=== PATIENT | male | born 1950 | race Caucasian/White ===

== ENCOUNTER 2017-08-21 09:55 | Day surgery (SDC) | payer MEDICARE, OTHER ==
[~2017-08-21] VITALS: Ht 188 cm; Wt 106.6 kg
[~2017-08-21 09:55] MED LIST: ASPIR-LOW81 MG PO; HYDROCHLOROTH12.5 MG PO; LISINOPRIL10 MG PO; VITAMIN B122500 MC1 PO
--- NOTE | 2017-08-21 13:46 | NUR ---
08/21/17 1346 Kierra Mart DC
--- NOTE | 2017-08-21 14:46 | NUR ---
1425: PATIENT BACK IN DAY SURGERY ROOM FROM PACU. C/O PAIN 10/24. STATES "FEELS GOOFY" FROM MEDICATIONS. RIGHT GROIN DRESSING CDI. SCDs ON. IV SITE WNL. AT BEDSIDE. DRINKING WATER. DECLINED SOMETHING TO EAT AT THIS TIME. CALL LIGHT WITHIN REACH.
[2017-08-21] MEDS ORDERED: NORCO 5-325 TA1 EACH PO (15:17)
--- NOTE | 2017-08-21 15:31 | NUR ---
PATIENT TOLERATED VANILLA PUDDING. MEDICATED FOR PAIN WITH 1 TAB OF NORCO. CALL LIGHT WITHIN REACH. AT BEDSIDE.
--- NOTE | 2017-08-21 16:12 | NUR ---
1600: PATIENT ASSISTED OOB AND TO BATHROOM. GAIT STEADY. VOID WITHOUT DIFFICULTY. GAIT STEADY BACK TO BED. IV DC'D WNL. TIP INTACT. DRESSING APPLIED. DISCHARGE INSTRUCTIONS GIVEN TO PATIENT AND . PATIENT GETTING DRESSED. 1610: PATIENT DISCHARGED TO HOME WITH VIA WHEELCHAIR.
--- NOTE | 2017-08-26 18:42 | OR ---
[facility] [address] [place], [place] [address] Signed DATE OF OPERATION: 08/21/2017 SURGEON: Jonah Pichardo MD PREOPERATIVE DIAGNOSIS: Reducible right inguinal hernia. POSTOPERATIVE DIAGNOSIS: Reducible right indirect inguinal hernia. PROCEDURE: Right Radha onlay mesh inguinal herniorrhaphy. ESTIMATED BLOOD LOSS: None. INDICATIONS: Issac is a 66-year-old gentleman, who had come to the office with his . About a week prior to the office visit, he had some coughing and felt pain and swelling in the right groin. He went to his primary care provider. There was a question whether or not he had a small right inguinal hernia. In the meantime, he did not seem to think it was bothering him. However, he was in need of a followup colonoscopy as well. Consequently, he was asked to see me with respect to the two issues. In the office, Issac does have a small inguinal hernia. We had a long discussion regarding his hernia. I gave him a [employer] brochure on hernias and we looked at it together in detail. He understands the difference between a primary suture repair and a mesh repair. He understands there is risk of surgery including, but not limited to bleeding, infection, scarring, change in contour of the skin, damage to the nerves, ischemic orchitis, recurrent hernias, and chronic pain. At first, he did not feel the hernia was bothering him to any significant degree. He wanted to wait and see if he could continue with his current hernia. He called back to the office a number of days later and said that he was having some coughing and having a lot of pain when just walking and bending over and so forth. Because of his daily symptoms then, he decided he wanted to have the hernia repaired. I met with Issac and his in our preop area. We all agreed. It was the right groin and we marked that appropriately. PROCEDURE NOTE: Issac was then taken into the operating room and placed in the supine position under general endotracheal tube anesthesia. He was given preoperative antibiotics along with subcutaneous heparin. SCDs were utilized. He was then prepped and draped in the usual Electronically Signed By: JONAH PICHARDO MD 08/26/17 1842 PATIENT NAME: ISSAC KIRKLAND OPERATIVE REPORT DATE OF : 54 PHYSICIAN: JONAH PICHARDO MD REPORT #: [id number] REPORT IS CONFIDENTIAL AND NOT TO BE RELEASED WITHOUT AUTHORIZATION [facility] [address] [place], [place] [address] Signed sterile fashion. We made our standard incision in the right groin and carried it down through the tissues bluntly and with the cautery. The external oblique fascia was opened along its length both medially and laterally. The ilioinguinal iliohypogastric nerves were visualized and protected throughout the case. The cord structures were then elevated to the level of pubic tubercle. His direct space was a little loose, but not any significant degree. We could see some bulging through the deep ring and so we carefully dissected that free on the anteromedial side. Sure enough, we found a broad-based hernia sac, but not particularly a long hernia sac. It took just a minute then to suture-ligate the neck of that hernia sac. We amputated the distal portion, passed that off the field. He had just a little bit of cord lipoma as well and that was carefully dissected away from the cord and the pampiniform plexus. It was also suture-ligated, amputated, and passed off the field. After this, a piece of flat Prolene mesh was cut to fit his groin and a mesh was held in place medially and laterally with help of running #1 Prolene suture. We had also imbricated the floor of the inguinal canal with a running 2-0 PDS suture simply to take out some redundancy and hold it down well while we placed our mesh in place. After this, local anesthetic was copiously injected into the wound. The wound was irrigated and suctioned out until clear. We closed the external oblique fascia over the repair with a running 2-0 PDS suture. The Ramona's fascia was reapproximated with a running 3-0 Monocryl suture. The dermis was reapproximated with interrupted 3-0 subcuticular Monocryl sutures. Skin edges were then reapproximated with a running 6-0 fast absorbing plain gut suture. Dry gauze and tape were then applied. Issac was awakened from his anesthesia, extubated in the OR, and taken to recovery room in stable condition. Jonah Pichardo MD ALB/MODL /[id number] cc: MD Dulce Kelley MD Electronically Signed By: JONAH PICHARDO MD 08/26/17 1842 PATIENT NAME: ISSAC KIRKLAND OPERATIVE REPORT DATE OF : 54 PHYSICIAN: JONAH PICHARDO MD REPORT #: [id number] REPORT IS CONFIDENTIAL AND NOT TO BE RELEASED WITHOUT AUTHORIZATION
== END 2017-08-21 16:10 | disposition home or self-care (01) ==
LOC: DS 09:55
PROVIDERS: Colon & Rectal Surgery
PROC: 0YU50JZ Supplement Right Inguinal Region with Synthetic Substitute, Open Approach (ICD-10-PCS; principal; 2017-08-21 11:45)
DX: K40.90 Unilateral inguinal hernia, without obstruction or gangrene, not specified as recurrent (principal); Z79.82 Long term (current) use of aspirin; Z79.899 Other long term (current) drug therapy; Z88.8 Allergy status to other drugs, medicaments and biological substances; Z98.890 Other specified postprocedural states
CPT/HCPCS: 00830; C1781; J0330; J0690; J1100; J1644; J1885; J2250; J2405; J2704; J3010; J7120